=== PATIENT | female | born 1955 | race Caucasian/White ===

== ENCOUNTER 2021-01-16 06:28 | Inpatient (IN) | payer MEDICARE, OTHER ==
[2021-01-16] MEDS ORDERED: Morphine 4 MG/ML VIAL ONE (06:41)
[2021-01-16] MEDS ORDERED: Ondansetron PF 4 MG/2 ML Vial ONE (06:41)
[2021-01-16] MEDS ORDERED: Vancomycin HCl 1.5 GM in Sodium Chloride 0.9% 250 ML 300 ML IVPB SCH (08:15)
[2021-01-16] MEDS ORDERED: CEFAZOLIN 2 GM in Premix Bag 1 BAG IVPB SCH (08:15)
[2021-01-16 08:33] LABS: #Lymphocytes 0.9 thou/uL (1.20-3.40); #Monocytes 0.4 thou/uL (0.11-0.59); #Neutrophils 3.2 thou/uL (1.40-6.50); %Basophils 0.8 % (0.0-1.0); %Eosinophils 0.6 % (0.0-10.0); %Monocytes 7.9 % (0.0-10.0); %Neutrophils 71.7 % (42.0-75.0); Hemoglobin 13.7 g/dL (12.0-16.0); Mean Corpuscular HGB CONC 33.6 g/dL (32.0-36.0); Mean Corpuscular Hemoglobin 32.7 pg (27.0-31.0); Mean Corpuscular Volume 97.4 fL (78.0-98.0); Mean Platelet Volume 6.6 fL (7.4-10.4); Platelet Count 189 thou/uL (130-400); RBC Distribution Width 11.8 % (11.5-14.5); Red Blood Cell (RBC) Count 4.19 mill/uL (4.20-5.40); White Blood Cell (WBC) Count 4.5 thou/uL (4.8-10.8)
[2021-01-16 08:39] LABS: ALT (SGPT) 51 U/L (8-55); AST (SGOT) 115 U/L (5-34); Albumin 4.2 g/dL (3.4-4.8); Alkaline Phosphatase 88 U/L (40-110); Anion Gap 13 mmol/L (10-20); BUN (Urea Nitrogen) 8 mg/dL (9.8-20.1); Bilirubin, Total 0.5 mg/dL (0.2-1.2); Calc. Creatinine Clearance 0 mL/min (70-130); Calcium 9.5 mg/dL (7.8-10.44); Carbon Dioxide 24 mmol/L (23-31); Chloride 101 mmol/L (98-107); Globulin 2.7 g/dL (2.4-3.5); Glucose 109 mg/dL (80-115); Potassium 4.4 mmol/L (3.5-5.1); Protein, Total 6.9 g/dL (5.8-8.1); Sodium 134 mmol/L (136-145)
[2021-01-16] MEDS ORDERED: HYDROcodone/Acetaminophen 10/325 mg Tablet PO PRN (09:07)
[2021-01-16] MEDS ORDERED: Morphine 2 MG/ML VIAL SLOW IVP PRN (09:27)
[2021-01-16] MEDS ORDERED: Dextrose 5% in Water 1,000 ML IV PRN (09:30)
[2021-01-16] MEDS ORDERED: Dextrose 50% Abboject 50 ML SYRINGE SLOW IVP PRN (09:30)
[2021-01-16] MEDS ORDERED: Ketorolac Tromethamine 30 MG/ML VIAL IVP SCH (09:45)
[2021-01-16] MEDS ORDERED: Ketorolac Tromethamine 30 MG/ML VIAL ONE (09:55)
[2021-01-16] MEDS ORDERED: Morphine 2 MG/ML VIAL ONE (09:55)
[2021-01-16 09:57] LABS: PTT 30.9 sec (22.9-36.1); Prothrombin Time 13.6 sec (12.0-14.7)
[2021-01-16] MEDS ORDERED: Acetaminophen 325 MG TAB ONE (12:44)
[2021-01-16] MEDS: Acetaminophen 325 MG TAB PO SCH ×2 (13:10→18:15)
[2021-01-16] MEDS: levETIRAcetam 500 MG TAB PO SCH ×3 (14:21→21:09)
[2021-01-16] MEDS: HYDROcodone/Acetaminophen 10/325 mg Tablet PO PRN (14:31)
[2021-01-16 15:27] VITALS: BMI 28.8
[2021-01-16] MEDS: Cyclobenzaprine 10 MG TAB PO PRN ×2 (16:00→23:59)
[2021-01-16] MEDS: Sodium Chloride 0.9% 1,000 ML IV SCH (16:02)
[2021-01-16] MEDS: Gabapentin 300 MG CAP PO SCH ×2 (16:05→21:10)
[2021-01-16] MEDS ORDERED: Ondansetron HCl/PF 4 MG in Sodium Chloride 0.9% 50 ML IVPB SCH (18:45)
[2021-01-16] MEDS: tiZANidine HCl 4 MG TAB PO SCH (21:10)
[2021-01-17] MEDS: HYDROcodone/Acetaminophen 10/325 mg Tablet PO PRN (03:39)
[2021-01-17] MEDS: Sodium Chloride 0.9% 1,000 ML IV SCH ×2 (04:26→18:41)
[2021-01-17] MEDS: Levothyroxine Sodium 25 MCG TAB PO SCH (06:44)
[2021-01-17] MEDS: Acetaminophen 325 MG TAB PO SCH ×4 (06:44→17:09)
[2021-01-17] MEDS: levETIRAcetam 500 MG TAB PO SCH ×4 (08:13→20:15)
[2021-01-17] MEDS ORDERED: Tranexamic Acid 1,000 MG/10 ML VIAL ONE (08:16)
[2021-01-17] MEDS ORDERED: Vancomycin 1 GM/200 ML BAG ONE (08:16)
[2021-01-17] MEDS ORDERED: Sodium Chloride 0.9% 100 ML ONE (08:17)
[2021-01-17] MEDS ORDERED: ELDERBERRY FRUIT PO SCH ×2 (09:00)
[2021-01-17] MEDS ORDERED: ASCORBIC ACID PO SCH ×2 (09:00)
[2021-01-17] MEDS ORDERED: Hydroxychloroquine Sulfate 200 MG TAB PO SCH (09:00)
[2021-01-17] MEDS ORDERED: carBAMazepine 200 MG TAB PO SCH (09:00)
[2021-01-17] MEDS ORDERED: [UNRECOGNIZED DRUG - OTHER] PO SCH (09:00)
[2021-01-17] MEDS ORDERED: Midazolam HCl 2 mg/2 ml Vial ONE (09:08)
[2021-01-17] MEDS ORDERED: Fentanyl 100 MCG/2 ML VIAL ONE (09:08)
[2021-01-17] MEDS ORDERED: Ondansetron PF 4 MG/2 ML Vial ONE ×2 (09:08→09:45)
[2021-01-17] MEDS ORDERED: ePHEDrine Sulfate 50 MG/10 ML VIAL ONE (09:45)
[2021-01-17] MEDS ORDERED: PHENYLEPHRINE-NS 100 MCG/ML 10 ML SYRINGE ONE (09:45)
[2021-01-17] MEDS ORDERED: Dexamethasone 20 MG/5 ML VIAL ONE (09:45)
[2021-01-17] MEDS ORDERED: PROPOFOL 200 MG/20 ML VIAL ONE (09:45)
[2021-01-17] MEDS ORDERED: Lidocaine 1.5% w/Epi 1:200K 30 ML VIAL (Epid Use) ONE (09:45)
[2021-01-17] MEDS ORDERED: Lidocaine 1% PF 5 ML VIAL ONE (09:45)
[2021-01-17] MEDS ORDERED: Rocuronium Bromide 10 MG/ML (10ML VIAL) ONE (09:45)
[2021-01-17] MEDS ORDERED: Ropivacaine 0.2% HCl/PF 20 ML ONE (10:04)
[2021-01-17] MEDS ORDERED: Acetaminophen 500 MG TAB PO PRN (10:48)
[2021-01-17] MEDS ORDERED: diphenhydrAMINE 50 MG/ML VIAL IM PRN (11:00)
[2021-01-17] MEDS ORDERED: HYDROcodone/Acetaminophen 5/325 mg Tablet PO PRN ×2 (11:00)
[2021-01-17] MEDS ORDERED: traMADol HCl 50 MG TAB PO PRN ×2 (11:00)
[2021-01-17] MEDS ORDERED: Naloxone HCl 0.4 mg/ml Vial IV PRN (11:00)
[2021-01-17] MEDS ORDERED: diphenhydrAMINE 50 MG/ML VIAL IVP PRN (11:00)
[2021-01-17] MEDS ORDERED: diphenhydrAMINE 25 MG CAP PO PRN ×2 (11:00→11:18)
[2021-01-17] MEDS ORDERED: Fentanyl 5 mcg/Bup 0.075% Cadd 100 ML EPIDURAL SCH (11:00)
[2021-01-17] MEDS ORDERED: Hydrocerin (Eucerin) Cream 120 gm Jar TOP PRN (11:00)
[2021-01-17] MEDS ORDERED: Ondansetron PF 4 MG/2 ML Vial IVP PRN ×2 (11:00→11:18)
[2021-01-17] MEDS ORDERED: Promethazine HCl 25 MG/ML VIAL IM PRN ×3 (11:00→11:26)
[2021-01-17] MEDS ORDERED: Promethazine HCl 25 MG SUPP PR PRN (11:00)
[2021-01-17] MEDS ORDERED: Naloxone HCl 0.4 mg/ml Vial IVP PRN (11:00)
[2021-01-17] MEDS ORDERED: Zolpidem Tartrate 5 MG TAB PO PRN ×2 (11:00→11:18)
[2021-01-17] MEDS ORDERED: Acetaminophen 325 MG TAB PO PRN (11:18)
[2021-01-17] MEDS ORDERED: Ondansetron HCl/PF 4 MG/2 ML Vial IVP PRN (11:26)
[2021-01-17] MEDS ORDERED: Promethazine HCl 25 MG/ML VIAL SLOW IVP PRN (11:26)
[2021-01-17] MEDS: Cholecalciferol 1,000 UNITS (25 MCG) TAB PO SCH (13:17)
[2021-01-17] MEDS: Gabapentin 300 MG CAP PO SCH ×3 (13:17→20:15)
[2021-01-17] MEDS: Amlodipine 5 MG TAB PO SCH (13:17)
[2021-01-17] MEDS: Calcium Carbonate 600 MG + Vit D TAB PO SCH (13:17)
[2021-01-17] MEDS: Dicyclomine 10 MG CAP PO SCH (13:17)
[2021-01-17] MEDS: tiZANidine HCl 4 MG TAB PO SCH ×2 (13:18→20:16)
[2021-01-17] MEDS: Thyroid 30 MG TAB PO SCH (13:18)
[2021-01-17] MEDS: Hydroxychloroquine Sulfate 200 MG TAB PO SCH (13:57)
[2021-01-17] MEDS: Ketorolac Tromethamine 30 MG/ML VIAL IVP SCH ×2 (13:58→17:11)
[2021-01-17] MEDS: CEFAZOLIN 2 GM in Premix Bag 1 BAG IVPB SCH (17:08)
[2021-01-17] MEDS: Cefadroxil Hydrate 500 mg/5 ml Suspenion PO SCH (20:14)
[2021-01-17] MEDS: Ferrous Gluconate 324 MG TAB PO SCH (20:14)
[2021-01-17] MEDS: Senokot S 8.6-50 MG TAB PO SCH (20:16)
[2021-01-17] MEDS ORDERED: Aspirin 81 mg Enteric Coated Tablet PO SCH (21:00)
[2021-01-18] MEDS: Acetaminophen 325 MG TAB PO SCH ×5 (00:04→23:04)
[2021-01-18] MEDS: CEFAZOLIN 2 GM in Premix Bag 1 BAG IVPB SCH (00:05)
[2021-01-18] MEDS: Ketorolac Tromethamine 30 MG/ML VIAL IVP SCH ×5 (00:05→23:19)
[2021-01-18] MEDS: Thyroid 30 MG TAB PO SCH ×2 (05:14→10:01)
[2021-01-18] MEDS: Levothyroxine Sodium 25 MCG TAB PO SCH (05:15)
[2021-01-18 05:40] LABS: #Lymphocytes 0.9 thou/uL (1.20-3.40); #Monocytes 0.6 thou/uL (0.11-0.59); #Neutrophils 3.4 thou/uL (1.40-6.50); %Basophils 0.2 % (0.0-1.0); %Eosinophils 0.5 % (0.0-10.0); %Lymphocytes 17.9 % (21.0-51.0); %Monocytes 11.9 % (0.0-10.0); %Neutrophils 69.5 % (42.0-75.0); Hemoglobin 9.7 g/dL (12.0-16.0); Mean Corpuscular Hemoglobin 32.1 pg (27.0-31.0); Mean Corpuscular Volume 97.4 fL (78.0-98.0); Mean Platelet Volume 6.4 fL (7.4-10.4); Platelet Count 150 thou/uL (130-400); RBC Distribution Width 11.6 % (11.5-14.5); Red Blood Cell (RBC) Count 3.01 mill/uL (4.20-5.40); White Blood Cell (WBC) Count 4.9 thou/uL (4.8-10.8)
[2021-01-18] MEDS: Cefadroxil Hydrate 500 mg/5 ml Suspenion PO SCH ×2 (10:00→21:10)
[2021-01-18] MEDS: tiZANidine HCl 4 MG TAB PO SCH ×2 (10:01→20:52)
[2021-01-18] MEDS: Senokot S 8.6-50 MG TAB PO SCH ×2 (10:01→20:51)
[2021-01-18] MEDS: Aspirin 81 mg Enteric Coated Tablet PO SCH ×2 (10:02→20:49)
[2021-01-18] MEDS: Multivitamin W/ Minerals 1 TAB PO SCH (10:02)
[2021-01-18] MEDS: Calcium Carbonate 600 MG + Vit D TAB PO SCH (10:03)
[2021-01-18] MEDS: Dicyclomine 10 MG CAP PO SCH (10:03)
[2021-01-18] MEDS: Cholecalciferol 1,000 UNITS (25 MCG) TAB PO SCH (10:04)
[2021-01-18] MEDS: Amlodipine 5 MG TAB PO SCH (10:07)
[2021-01-18] MEDS: Ferrous Gluconate 324 MG TAB PO SCH ×2 (10:07→20:50)
[2021-01-18] MEDS: Gabapentin 300 MG CAP PO SCH ×3 (10:07→20:52)
[2021-01-18] MEDS: levETIRAcetam 500 MG TAB PO SCH ×4 (10:08→20:50)
[2021-01-18] MEDS ORDERED: Lactated Ringer's 500 ML IV SCH (11:00)
[2021-01-18] MEDS: Hydroxychloroquine Sulfate 200 MG TAB PO SCH (14:20)
[2021-01-18] MEDS ORDERED: Hydrocortisone Sod Succ/PF 100 mg/2 ml Vial IVP SCH (18:15)
[2021-01-18] MEDS: Sodium Chloride 0.9% 1,000 ML IV SCH (18:29)
[2021-01-18 20:34] LABS: #Eosinphils 0.1 thou/uL (0.0-0.7); #Lymphocytes 0.5 thou/uL (1.20-3.40); #Monocytes 0.5 thou/uL (0.11-0.59); #Neutrophils 5.5 thou/uL (1.40-6.50); %Basophils 0.4 % (0.0-1.0); %Eosinophils 2.2 % (0.0-10.0); %Lymphocytes 7.4 % (21.0-51.0); Hemoglobin 9.8 g/dL (12.0-16.0); Mean Corpuscular HGB CONC 34.3 g/dL (32.0-36.0); Mean Corpuscular Hemoglobin 33.8 pg (27.0-31.0); Mean Corpuscular Volume 98.6 fL (78.0-98.0); Mean Platelet Volume 6.7 fL (7.4-10.4); Platelet Count 143 thou/uL (130-400); RBC Distribution Width 11.8 % (11.5-14.5); White Blood Cell (WBC) Count 6.8 thou/uL (4.8-10.8)
[2021-01-18 20:55] LABS: Lactic Acid 2.7 mmol/L (0.5-2.2)
[2021-01-18 20:58] LABS: ALT (SGPT) 28 U/L (8-55); AST (SGOT) 33 U/L (5-34); Albumin 3.4 g/dL (3.4-4.8); Alkaline Phosphatase 79 U/L (40-110); Anion Gap 13 mmol/L (10-20); BUN (Urea Nitrogen) 10 mg/dL (9.8-20.1); Bilirubin, Total 0.3 mg/dL (0.2-1.2); Calc. Creatinine Clearance 88 mL/min (70-130); Calcium 8.8 mg/dL (7.8-10.44); Carbon Dioxide 20 mmol/L (23-31); Chloride 99 mmol/L (98-107); Globulin 2.2 g/dL (2.4-3.5); Glucose 124 mg/dL (80-115); Magnesium 1.8 mg/dL (1.6-2.6); Phosphorus 3.2 mg/dL (2.3-4.7); Potassium 3.9 mmol/L (3.5-5.1); Protein, Total 5.6 g/dL (5.8-8.1); Sodium 128 mmol/L (136-145)
[2021-01-18 22:37] LABS: Hemoglobin 10.2 g/dL (12.0-16.0); Mean Corpuscular HGB CONC 34.3 g/dL (32.0-36.0); Mean Corpuscular Hemoglobin 33.6 pg (27.0-31.0); Mean Platelet Volume 6.8 fL (7.4-10.4); Platelet Count 135 thou/uL (130-400); RBC Distribution Width 11.7 % (11.5-14.5); Red Blood Cell (RBC) Count 3.02 mill/uL (4.20-5.40); White Blood Cell (WBC) Count 7.1 thou/uL (4.8-10.8)
[2021-01-18 22:56] LABS: Band 16 % (5-11); Hypochromia SLIGHT = 6-15 cells (100X) (0-5/hpf); MDiff Complete? YES; Monocytes 2 % (0-10); Neutrophil 82 % (42-75); Platelet Morphology Comment Appears Adequate
[2021-01-18 23:05] LABS: Bilirubin Negative (Negative); Blood, Urine 1+ (Negative); Clarity Clear (Clear); Glucose, Urine (Dipstick) Normal (Negative); Ketone, Urine Negative (Negative); Leukocyte 25 Leu/uL (Negative); Mucous/LPF Rare LPF (<2+); Nitrite Negative (Negative); Protein, Urine (Dipstick) 10 mg/dL (Neg-Trace); RBC/HPF 21-50 HPF (0-3); Renal Epithelial 0-3 HPF (None Seen); Specific Gravity, Urine 1.012 (1.002-1.036); Squamous Epithelial 0-3 HPF (0-3); Urobilinogen Normal mg/dL (Less than 2); pH, Urine 6.5 (5.0-9.0)
[2021-01-18] MEDS: Piperacillin/Tazobactam 3.375 GM in Sodium Chloride 0.9% 100 ML IVPB SCH (23:05)
[2021-01-18 23:11] LABS: Bacteria/HPF Rare-Few HPF (None Seen); Calcium Oxalate Crystals Rare HPF (None Seen)
[2021-01-18 23:12] LABS: Urine Culture Reflex Yes Yes
[2021-01-19] MEDS ORDERED: Furosemide 20 MG/2 ML VIAL SLOW IVP SCH ×2 (01:00→10:00)
[2021-01-19] MEDS: Hydrocortisone Sod Succ/PF 100 mg/2 ml Vial IVP SCH ×4 (01:19→23:08)
[2021-01-19] MEDS ORDERED: Vancomycin 1.5 GRAM/300 ML BAG 1.5 GM in Premix Bag 1 BAG IVPB SCH ×2 (02:00→09:00)
[2021-01-19] MEDS ORDERED: Vancomycin 1 GM in Premix Bag 1 BAG IVPB SCH ×2 (02:00→21:00)
[2021-01-19] MEDS: Levothyroxine Sodium 25 MCG TAB PO SCH (05:49)
[2021-01-19] MEDS: Thyroid 30 MG TAB PO SCH (05:49)
[2021-01-19] MEDS: Piperacillin/Tazobactam 3.375 GM in Sodium Chloride 0.9% 100 ML IVPB SCH ×2 (05:50→11:28)
[2021-01-19] MEDS: Acetaminophen 325 MG TAB PO SCH ×4 (05:50→23:49)
[2021-01-19] MEDS: Ketorolac Tromethamine 30 MG/ML VIAL IVP SCH (05:50)
[2021-01-19 08:06] LABS: #Lymphocytes 0.3 thou/uL (1.20-3.40); #Monocytes 0.6 thou/uL (0.11-0.59); #Neutrophils 7.3 thou/uL (1.40-6.50); %Eosinophils 0.1 % (0.0-10.0); %Monocytes 7.5 % (0.0-10.0); %Neutrophils 88.3 % (42.0-75.0); Hemoglobin 10.6 g/dL (12.0-16.0); Lactic Acid 1.8 mmol/L (0.5-2.2); Mean Corpuscular HGB CONC 34.3 g/dL (32.0-36.0); Mean Corpuscular Hemoglobin 33.7 pg (27.0-31.0); Mean Corpuscular Volume 98.1 fL (78.0-98.0); Mean Platelet Volume 6.8 fL (7.4-10.4); Platelet Count 159 thou/uL (130-400); RBC Distribution Width 11.6 % (11.5-14.5); Red Blood Cell (RBC) Count 3.14 mill/uL (4.20-5.40); White Blood Cell (WBC) Count 8.3 thou/uL (4.8-10.8)
[2021-01-19 08:08] LABS: Phosphorus 3.5 mg/dL (2.3-4.7)
[2021-01-19 08:10] LABS: Anion Gap 14 mmol/L (10-20); BUN (Urea Nitrogen) 6 mg/dL (9.8-20.1); Calc. Creatinine Clearance 112 mL/min (70-130); Calcium 8.6 mg/dL (7.8-10.44); Carbon Dioxide 19 mmol/L (23-31); Chloride 98 mmol/L (98-107); Glucose 125 mg/dL (80-115); Magnesium 1.8 mg/dL (1.6-2.6); Potassium 3.5 mmol/L (3.5-5.1); Sodium 127 mmol/L (136-145)
[2021-01-19] MEDS: Dicyclomine 10 MG CAP PO SCH (09:35)
[2021-01-19] MEDS: Aspirin 81 mg Enteric Coated Tablet PO SCH ×2 (09:36→21:41)
[2021-01-19] MEDS: Cholecalciferol 1,000 UNITS (25 MCG) TAB PO SCH (09:36)
[2021-01-19] MEDS: levETIRAcetam 500 MG TAB PO SCH ×4 (09:39→21:41)
[2021-01-19] MEDS: Multivitamin W/ Minerals 1 TAB PO SCH (09:40)
[2021-01-19] MEDS: Calcium Carbonate 600 MG + Vit D TAB PO SCH (09:40)
[2021-01-19] MEDS: Ferrous Gluconate 324 MG TAB PO SCH ×2 (09:40→21:41)
[2021-01-19] MEDS: Gabapentin 300 MG CAP PO SCH ×3 (09:41→23:08)
[2021-01-19] MEDS: tiZANidine HCl 4 MG TAB PO SCH ×2 (09:41→21:40)
[2021-01-19] MEDS: Senokot S 8.6-50 MG TAB PO SCH ×2 (09:41→23:10)
[2021-01-19] MEDS ORDERED: Melatonin 3 MG TAB PO PRN (09:54)
[2021-01-19] MEDS: Cefadroxil Hydrate 500 mg/5 ml Suspenion PO SCH ×2 (11:20→21:50)
[2021-01-19] MEDS: Hydroxychloroquine Sulfate 200 MG TAB PO SCH (11:21)
[2021-01-19 12:36] LABS: Actual Bicarbonate (HCO3a) 21.1 mEq/L (22-28); Base Excess (BEa) -2.7 mEq/L (-2.0 to +3.0); Calcium, Ionized (arterial) 1.11 mmol/L (1.12-1.30); Carboxyhemoglobin (COHb) 0.4 gm% (0.0-3.0); Hemoglobin (Hb) 8.3 g/dL (12.0-16.0); O2 Tension (PaO2), arterial 62.6 mmHg (> 80.0); pH, Arterial 7.44 (7.35-7.45)
[2021-01-19 12:38] LABS: Puncture Site RRA
[2021-01-19] MEDS ORDERED: Sodium Chloride 0.9% 1,000 ML IV SCH (13:15)
[2021-01-19] MEDS ORDERED: Magnesium Sulfate 2 GM in Sodium Chloride 0.9% 100 ML IV SCH (13:30)
[2021-01-19] MEDS ORDERED: Calcium Chloride 1 GM/10 ML Abboject SYRINGE IVP SCH (13:30)
[2021-01-19] MEDS ORDERED: Potassium Chloride 20 MEQ TAB PO SCH (13:45)
[2021-01-19] MEDS ORDERED: Potassium Chloride 20 MEQ in Premix Bag 1 BAG IVPB SCH (13:45)
[2021-01-19] MEDS ORDERED: Magnesium 2 GM/50 ML 2 GM in Premix Bag 1 BAG IVPB SCH (13:45)
[2021-01-19] MEDS: Sodium Chloride 0.9% 1,000 ML IV SCH ×2 (14:20→21:55)
[2021-01-19] MEDS ORDERED: Hydrocortisone Sod Succ/PF 100 mg/2 ml Vial IVP SCH (14:45)
[2021-01-19] MEDS: Sodium Chloride 1 GM TAB PO SCH ×2 (18:00→23:49)
[2021-01-19] MEDS ORDERED: Sodium Chloride 0.9% 500 ML IVPB SCH (20:00)
[2021-01-19] MEDS ORDERED: carBAMazepine 200 MG TAB PO SCH (22:30)
[2021-01-20] MEDS ORDERED: Sodium Chloride 0.9% 1,000 ML IV SCH (02:45)
[2021-01-20] MEDS ORDERED: Pepto Bismol Chew TAB PO PRN (03:11)
[2021-01-20] MEDS ORDERED: Pepto Bismol Chew TAB PO SCH (03:15)
[2021-01-20] MEDS: Hydrocortisone Sod Succ/PF 100 mg/2 ml Vial IVP SCH ×4 (04:04→23:19)
[2021-01-20 05:12] LABS: Hemoglobin 8.5 g/dL (12.0-16.0); Mean Corpuscular HGB CONC 31.8 g/dL (32.0-36.0); Mean Corpuscular Hemoglobin 31.4 pg (27.0-31.0); Mean Corpuscular Volume 98.6 fL (78.0-98.0); Mean Platelet Volume 7.2 fL (7.4-10.4); Platelet Count 148 thou/uL (130-400); RBC Distribution Width 11.8 % (11.5-14.5); White Blood Cell (WBC) Count 6.2 thou/uL (4.8-10.8)
[2021-01-20] MEDS: Acetaminophen 325 MG TAB PO SCH ×4 (05:25→23:18)
[2021-01-20] MEDS: Levothyroxine Sodium 25 MCG TAB PO SCH (05:27)
[2021-01-20 05:34] LABS: Lymphocytes 11 % (21-51); MDiff Complete? YES; Monocytes 3 % (0-10); Neutrophil 86 % (42-75); Platelet Morphology Comment Appears Adequate
[2021-01-20 05:35] LABS: Anion Gap 11 mmol/L (10-20); BUN (Urea Nitrogen) 5 mg/dL (9.8-20.1); Calc. Creatinine Clearance 120 mL/min (70-130); Calcium 8.3 mg/dL (7.8-10.44); Carbon Dioxide 20 mmol/L (23-31); Chloride 104 mmol/L (98-107); Glucose 97 mg/dL (80-115); Phosphorus 2.4 mg/dL (2.3-4.7); Sodium 131 mmol/L (136-145)
[2021-01-20] MEDS: Sodium Chloride 1 GM TAB PO SCH ×2 (05:38→06:00)
[2021-01-20] MEDS: Aspirin 81 mg Enteric Coated Tablet PO SCH ×2 (09:15→20:45)
[2021-01-20] MEDS: levETIRAcetam 500 MG TAB PO SCH ×4 (09:15→20:47)
[2021-01-20] MEDS: Gabapentin 300 MG CAP PO SCH ×3 (09:16→20:46)
[2021-01-20] MEDS: carBAMazepine 200 MG TAB PO SCH (09:17)
[2021-01-20] MEDS: Multivitamin W/ Minerals 1 TAB PO SCH (09:18)
[2021-01-20] MEDS: Calcium Carbonate 600 MG + Vit D TAB PO SCH (09:18)
[2021-01-20] MEDS: Ferrous Gluconate 324 MG TAB PO SCH ×2 (09:18→23:16)
[2021-01-20] MEDS: Cefadroxil Hydrate 500 mg/5 ml Suspenion PO SCH ×2 (09:20→20:49)
[2021-01-20] MEDS: tiZANidine HCl 4 MG TAB PO SCH (09:23)
[2021-01-20] MEDS: Cholecalciferol 1,000 UNITS (25 MCG) TAB PO SCH (09:50)
[2021-01-20] MEDS: Dicyclomine 10 MG CAP PO SCH (09:50)
[2021-01-20] MEDS: Loperamide HCl 2 MG CAP PO PRN (09:57)
[2021-01-20] MEDS ORDERED: Hydrocortisone Sod Succ/PF 100 mg/2 ml Vial IVP SCH (12:00)
[2021-01-20] MEDS ORDERED: Sodium Chloride 0.9% 500 ML IV SCH (12:00)
[2021-01-20] MEDS ORDERED: Ondansetron ODT 8 MG TAB PO PRN (12:02)
[2021-01-20] MEDS: Hydroxychloroquine Sulfate 200 MG TAB PO SCH (12:09)
[2021-01-20] MEDS ORDERED: clonazePAM 1 MG TAB PO PRN (12:18)
[2021-01-20 13:58] LABS: Carbamazepine-Tegretol 10.2 ug/mL (4.0-12.0)
[2021-01-20] MEDS: Midodrine HCl 5 MG TAB PO SCH ×2 (15:52→20:45)
[2021-01-20] MEDS ORDERED: carBAMazepine 200 MG TAB PO SCH (20:00)
[2021-01-20] MEDS ORDERED: SUMAtriptan Succinate 50 MG TAB PO PRN (21:01)
[2021-01-21] MEDS: Hydrocortisone Sod Succ/PF 100 mg/2 ml Vial IVP SCH (05:28)
[2021-01-21] MEDS: Levothyroxine Sodium 25 MCG TAB PO SCH (05:30)
[2021-01-21] MEDS: Acetaminophen 325 MG TAB PO SCH ×2 (05:30→12:36)
[2021-01-21] MEDS ORDERED: Thyroid 30 MG TAB PO SCH (06:00)
[2021-01-21] MEDS ORDERED: Saccharomyces boulardii 250 MG CAP PO SCH (09:00)
[2021-01-21] MEDS: Midodrine HCl 5 MG TAB PO SCH (09:58)
[2021-01-21] MEDS: levETIRAcetam 500 MG TAB PO SCH ×2 (09:59→12:37)
[2021-01-21] MEDS: Multivitamin W/ Minerals 1 TAB PO SCH (10:00)
[2021-01-21] MEDS: Calcium Carbonate 600 MG + Vit D TAB PO SCH (10:00)
[2021-01-21] MEDS: Aspirin 81 mg Enteric Coated Tablet PO SCH (10:00)
[2021-01-21] MEDS: Dicyclomine 10 MG CAP PO SCH (10:00)
[2021-01-21] MEDS: Loperamide HCl 2 MG CAP PO PRN (10:00)
[2021-01-21] MEDS: Cefadroxil Hydrate 500 mg/5 ml Suspenion PO SCH (10:02)
[2021-01-21] MEDS: carBAMazepine 200 MG TAB PO SCH (10:02)
[2021-01-21] MEDS: Gabapentin 300 MG CAP PO SCH (10:03)
[2021-01-21] MEDS: Cholecalciferol 1,000 UNITS (25 MCG) TAB PO SCH (10:04)
[2021-01-21] MEDS: Ferrous Gluconate 324 MG TAB PO SCH (10:07)
[2021-01-21 11:16] VITALS: BP 137/83; TEMP 97.3
[2021-01-21] MEDS: Hydroxychloroquine Sulfate 200 MG TAB PO SCH (12:37)
== END 2021-01-21 14:40 | disposition home health service (06) | DRG 522 ==
LOC: ERS 06:28 → ERHOLD 09:25 → SURG A 13:43 → CCU 01-19 13:48 → SURG A 01-19 23:23
PROVIDERS: ADMIT Surgery; ATTEND Surgery
PROC: 0SRB04Z Replacement of Left Hip Joint with Ceramic on Polyethylene Synthetic Substitute, Open Approach (ICD-10-PCS; principal; 2021-01-17)
DX: S72.002A Fracture of unspecified part of neck of left femur, initial encounter for closed fracture (principal); E87.1 Hypo-osmolality and hyponatremia; G40.909 Epilepsy, unspecified, not intractable, without status epilepticus; F32.9 Major depressive disorder, single episode, unspecified; Z90.49 Acquired absence of other specified parts of digestive tract; Z90.710 Acquired absence of both cervix and uterus; Z88.8 Allergy status to other drugs, medicaments and biological substances; I10 Essential (primary) hypertension; D72.819 Decreased white blood cell count, unspecified; E03.9 Hypothyroidism, unspecified; F41.9 Anxiety disorder, unspecified; M81.0 Age-related osteoporosis without current pathological fracture; K58.9 Irritable bowel syndrome, unspecified; Z87.891 Personal history of nicotine dependence; W18.30XA Fall on same level, unspecified, initial encounter; I95.9 Hypotension, unspecified; R19.7 Diarrhea, unspecified
CPT/HCPCS: 36415; 36416; 36600; 71045; 80048; 80053; 80156; 81001; 82533; 82607; 82746; 82805; 83605; 83735; 83880; 84100; 84146; 84436; 84443; 85025; 85027; 85610; 85730; 86850; 86900; 86901; 87040; 87086; 87324; 87449; 87635; 95712; 95816; 95819; 95957; 96374; 96375; J0690; J1100; J1720; J1885; J1940; J2001; J2250; J2270; J2405; J2543; J2704; J2795; J3010; J3370; J3475; J3480; J3490; J7030; P9045; U0003; U0005